=== PATIENT | male | born 1935 | race Hispanic/Latino ===

== ENCOUNTER 2018-07-24 16:22 | Inpatient (IN) | payer MEDICARE ==
[~2018-07-24] VITALS: Ht 182.9 cm; Wt 49.0 kg
[~2018-07-24 16:22] MED LIST: AMLO5TAB7 PO; DONE5TAB33 PO; METF-444 PO; RANI150T7 PO; RISP0.5T19 PO; SILO8CAP PO
[2018-07-24 17:47] LABS: BASOPHILS % (AUTO) 1.1 % (0.0-5.0); HEMATOCRIT 38.7 % (42-54); LYMPHOCYTES % (AUTO) 18.5 % (21.0-51.0); MEAN CORPUSCULAR HEMOGLOBIN 27.9 pg (27.0-33.0); MEAN CORPUSCULAR HGB CONC 30.1 g/dL (32.0-36.0); MEAN CORPUSCULAR VOLUME 92.7 fL (79-99); MONOCYTES % (AUTO) 5.8 % (3.0-13.0); NEUTROPHILS % (AUTO) 72.6 % (40.0-77.0); NUCLEATED RED BLOOD CELLS 0.5 % (0.0-0.19); PLATELET COUNT (AUTO) 271 K/uL (130-400); RED BLOOD CELL COUNT(AUTO) 4.18 MIL/uL (4.50-6.20); RED CELL DISTRIBUTION WIDTH 18.8 % (11.0-15.5); WHITE BLOOD COUNT (AUTO) 9.7 K/uL (4.8-10.8)
[2018-07-24 17:59] LABS: ALBUMIN 2.8 g/dL (3.5-5.0); BILIRUBIN,TOTAL 0.3 mg/dL (0.2-1.0); TOTAL PROTEIN, SERUM 9.6 g/dL (6.0-8.3)
[2018-07-24 18:17] LABS: B-TYPE NATRIURETIC PEPTIDE 53 pg/mL (0-100)
[2018-07-24] MEDS ORDERED: SODIUM POLYSTYRENE SULFONATE 15 GM/60 ML ML ONE ×2 (18:23→23:29)
[2018-07-24] MEDS ORDERED: SODIUM CHLORIDE 0.9% 100 ML IV ONE (18:24)
[2018-07-24] MEDS ORDERED: SODIUM CHLORIDE 0.9% 1000ML 1,000 ML IV ONE (18:24)
[2018-07-24] MEDS ORDERED: DEXTROSE 50%-WATER 50 ML DISP.SYRIN IV ONE ×2 (18:24→23:28)
[2018-07-24] MEDS ORDERED: CALCIUM GLUCONATE 1 GM/10 ML VIAL IV ONE (18:24)
[2018-07-24] MEDS ORDERED: INSULIN HUMULIN R 100 UNIT/ML 3ML ONE ×2 (18:25→23:27)
[2018-07-24 18:32] LABS: APPEARANCE,URINE SLIGHTLY CLOUDY (CLEAR); BILIRUBIN,URINE NEGATIVE (NEGATIVE); COLOR,URINE YELLOW (YELLOW); GLUCOSE, URINE (UA) NEGATIVE (NEGATIVE); KETONES,URINE NEGATIVE (NEGATIVE); LEUKOCYTE ESTERASE ,URINE NEGATIVE (NEGATIVE); NITRATE,URINE NEGATIVE (NEGATIVE); OCCULT BLOOD,URINE NEGATIVE (NEGATIVE); PROTEIN,URINE TRACE (NEGATIVE); UROBILINOGEN,URINE 0.2 mg/dL (0.2-1.0)
[2018-07-24 18:33] LABS: AMORPHOUS SEDIMENT,UR Few /LPF (None Seen); BACTERIA,URINE Few /HPF (None Seen); RBC,URINE None Seen /HPF (0-1); WBC,URINE None Seen /HPF (0-1)
[2018-07-24 21:55] LABS: APPEARANCE,URINE Cloudy (CLEAR); BILIRUBIN,URINE Negative (NEGATIVE); COLOR,URINE Yellow (YELLOW); GLUCOSE, URINE (UA) Negative (NEGATIVE); KETONES,URINE Negative (NEGATIVE); LEUKOCYTE ESTERASE ,URINE Negative (NEGATIVE); NITRATE,URINE Negative (NEGATIVE); OCCULT BLOOD,URINE Trace (NEGATIVE); PROTEIN,URINE POS 1+ (NEGATIVE); UROBILINOGEN,URINE 0.2 mg/dL (0.2-1.0)
[2018-07-24 22:01] LABS: AMORPHOUS SEDIMENT,UR Many /LPF (None Seen); BACTERIA,URINE Rare /HPF (None Seen); RBC,URINE None Seen /HPF (0-1); SQUAMOUS EPITHELIAL CELL,UR None Seen /HPF (0-2); WBC,URINE 0-1 /HPF (0-1)
[2018-07-24 22:34] LABS: CREATININE 3.9 mg/dL (0.5-1.5)
[2018-07-24 22:40] VITALS: BP 110/48
[2018-07-24] MEDS: DEXTROSE 50%-WATER 25 GM/50 ML VIAL IV SCH (23:15)
[2018-07-24] MEDS ORDERED: SODIUM BICARB 50MEQ 50ML VIAL IV ONE (23:15)
[2018-07-24] MEDS ORDERED: SODIUM CHLORIDE 0.9% 1000ML 1,000 ML IV SCH (23:15)
[2018-07-24] MEDS: INSULIN HUMULIN R 100 UNIT/ML 3ML IV SCH (23:15)
[2018-07-24] MEDS: SODIUM POLYSTYRENE SULFONATE 15 GM/60 ML ML PO SCH (23:15)
[2018-07-24] MEDS ORDERED: SODIUM BICARB 50MEQ 50ML VIAL ONE (23:30)
[2018-07-25] MEDS: INSULIN HUMULIN R 100 UNIT/ML 3ML IV SCH (00:38)
[2018-07-25 02:19] LABS: CREATININE 3.8 mg/dL (0.5-1.5)
[2018-07-25 04:00] VITALS: BP 95/55
[2018-07-25 05:16] LABS: CREATININE 3.8 mg/dL (0.5-1.5)
[2018-07-25 05:21] LABS: POTASSIUM 7.7 mmol/L (3.5-5.1)
[2018-07-25] MEDS: SODIUM POLYSTYRENE SULFONATE 15 GM/60 ML ML PO SCH ×2 (07:15→15:15)
[2018-07-25 07:45] VITALS: BP 125/48
[2018-07-25 11:00] VITALS: BP 91/47
[2018-07-25 11:04] LABS: TROPONIN I 0.05 ng/mL (0.00-0.06)
[2018-07-25] MEDS: DEXTROSE 5%-WATER 1,000 ML IV SCH ×2 (11:17→22:08)
[2018-07-25 15:30] VITALS: BP 92/57
[2018-07-25 20:00] VITALS: BP 112/52
[2018-07-25] MEDS ORDERED: DEXTROSE 50%-WATER 50 ML DISP.SYRIN IV PRN (21:45)
[2018-07-25] MEDS ORDERED: GLUCAGON 1MG KIT 1 MG ML IM PRN (21:45)
[2018-07-25] MEDS: MORPHINE SULFATE 2 MG/ML 1ML SYG IVP PRN (22:07)
[2018-07-25 23:14] VITALS: BP 130/87
[2018-07-25] MEDS: DEXTROSE 50%-WATER 25 GM/50 ML VIAL IV SCH (23:15)
[2018-07-25] MEDS ORDERED: ACETAMINOPHEN 650 MG SUPPOSITORY RC PRN (23:30)
[2018-07-26] MEDS ORDERED: ACETAMINOPHEN 650 MG SUPPOSITORY RC ONE (00:29)
[2018-07-26] MEDS: GLYCOPYRROLATE 1 MG/5 ML SYRINGE IV SCH ×5 (00:34→23:05)
[2018-07-26] MEDS: LORAZEPAM 2 MG/ML 1 ML VIAL IVP PRN ×2 (00:34→09:15)
[2018-07-26] MEDS: MORPHINE SULFATE 2 MG/ML 1ML SYG IVP PRN ×7 (01:10→23:06)
[2018-07-26] MEDS: INSULIN HUMULIN R 100 UNIT/ML 3ML SQ SCH ×4 (01:25→17:12)
[2018-07-26 03:05] VITALS: BP 95/57
[2018-07-26 04:46] LABS: CREATININE 4.6 mg/dL (0.5-1.5)
[2018-07-26 04:49] LABS: POTASSIUM 6.5 mmol/L (3.5-5.1)
[2018-07-26] MEDS: DEXTROSE 5%-WATER 1,000 ML IV SCH ×2 (06:26→17:12)
[2018-07-26 08:00] VITALS: BP 125/61
[2018-07-26] MEDS ORDERED: LISI2.5T2 PO (08:12)
[2018-07-26] MEDS ORDERED: SENN8.6T90 PO (08:13)
[2018-07-26 12:00] VITALS: BP 62/39
[2018-07-26 16:00] VITALS: BP 67/39
[2018-07-26 20:39] VITALS: BP 126/32
[2018-07-27] MEDS: INSULIN HUMULIN R 100 UNIT/ML 3ML SQ SCH
== END 2018-07-27 01:08 | disposition expired | DRG 682 ==
LOC: EDH 16:22 → OBSVTOIN 20:09 → EDHIP 20:09 → 3DH 21:39
PROVIDERS: ADMIT Internal Medicine; ATTEND Internal Medicine
DX: N17.9 Acute kidney failure, unspecified (principal); J96.90 Respiratory failure, unspecified, unspecified whether with hypoxia or hypercapnia; E87.0 Hyperosmolality and hypernatremia; E46 Unspecified protein-calorie malnutrition; Z68.1 Body mass index [BMI] 19.9 or less, adult; Z66 Do not resuscitate; E86.0 Dehydration; I95.9 Hypotension, unspecified; R13.12 Dysphagia, oropharyngeal phase; E87.5 Hyperkalemia; Z51.5 Encounter for palliative care; F03.90 Unspecified dementia, unspecified severity, without behavioral disturbance, psychotic disturbance, mood disturbance, and anxiety; R62.7 Adult failure to thrive; E11.22 Type 2 diabetes mellitus with diabetic chronic kidney disease; N18.9 Chronic kidney disease, unspecified; I12.9 Hypertensive chronic kidney disease with stage 1 through stage 4 chronic kidney disease, or unspecified chronic kidney disease; N40.0 Benign prostatic hyperplasia without lower urinary tract symptoms; E87.8 Other disorders of electrolyte and fluid balance, not elsewhere classified; E78.5 Hyperlipidemia, unspecified; Z79.899 Other long term (current) drug therapy
CPT/HCPCS: 36415; 71045; 76770; 80048; 80053; 81001; 82550; 82948; 83690; 83874; 83880; 83935; 84300; 84484; 85025; 92610; 93005; 99291; J0610; J1815; J2060; J3490; J7030; J7070